=== PATIENT | male | born 1995 | race Caucasian/White ===

== ENCOUNTER 2016-12-22 15:54 | Emergency (ER) | payer OTHER ==
[~2016-12-22] VITALS: Ht 198.1 cm; Wt 109.1 kg
[2016-12-22 16:12] VITALS: BP 124/75; PULSE 70; RESP 16; O2SAT 97
[2016-12-22] MEDS ORDERED: oxyCODONE-Acetamin 5-325 mg Tablet PO ONE (18:15)
[2016-12-22] MEDS ORDERED: Dexamethasone 10 mg/mL Inj IM ONE (18:25)
--- NOTE | 2016-12-22 18:25 | ED.REPORT ---
HPI-Back Pain Under 40 Date of Service December 22, 2016 ED Provider: Tushar Tello DO A 21 year old male with a history of multiple back injuries presents to the ED with lower back pain onset a couple of weeks ago, worsening at 1100 this morning while at work. The pain is described as "sharp" and "shooting," with intermittent radiation down his right leg. The patient denies weakness, numbness , tingling, bowel incontinence, urinary incontinence, or other symptoms. He has been seen at the [facility] and by a chiropractor since onset, with some relief. He has received negative x-rays. 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 Nursing Notes Stated Complaint: POSSIBLE PINCHED NERVE Chief Complaint: Back Pain or Injury Nursing Notes Reviewed: Yes Allergies: Coded Allergies: No Known Allergies (Verified Allergy, Unknown, 06/04/06) Uncoded Allergies: NKDA (Allergy, Unknown, 06/04/06) General Time Seen by MD: 18:15 Chief Complaint Lumbar pain Hx Obtained From: Patient Arrived By: Walk-in Sudden in Onset?: No Onset Occurred: More than a week ago... (2 weeks, worsening this morning) Symptom Duration: Since onset Location: : Spinal lumbar area Quality: Painful Radiation: : Right leg above knee Severity: Current: Moderate Severity: Maximum: Moderate Pertinent Negative: Relieved by nothing Recent Healthcare: Recent doctor visit Similar Sx Previous: Yes Past Medical History Past Medical History Multiple back injuries Past Surgical History None reported Smoking History Unknown if Ever Smoker Social History Other Social History: Good social support Ambulatory Status Independent Review of Systems Review of Systems Note: - Tingling Constitutional: Denies: Fever Respiratory: Denies: Non-productive cough, Shortness of breath GI: Denies: Diarrhea, Vomiting Male: Denies Incontinence Musculoskeletal: Reports: Back pain (Lower), Extremity pain (Right leg) Neurologic: Denies: Bladder dysfunction, Bowel dysfunction, Numbness, Weakness Complete sys rev & neg: except as marked. Physical Exam Initial Vital Signs Vital Signs (First) Date Time Temp Pulse Resp B/P Pulse Ox O2 Delivery O2 Flow Rate FiO2 12/22/16 16:12 36.8 70 16 124/75 97 Room Air Initial VS: Reviewed Head / Eyes: Atraumatic, Normocephalic ENT: Conjunctiva normal, No scleral icterus Neck: Supple, Full range of motion Skin: Warm, Dry, No cyanosis Psychiatric: Mood/affect normal, Behavior normal, Normal thought content General/Constitutional: Awake, Alert Back: No midline vertebral tend, No muscle spasm Muscle Spasm / ROM: Positive: ROM decrease - mild (Due to pain) Positive straight leg raise No signs of cord syndrome No clonus Neurologic: Oriented X3, Speech NL, No motor deficits, No sensory deficits, Reflexes equal bilat, Cerebellar NL Lower Extremity / Pelvis / MS: Atraumatic, Neurologic intact, Vascular intact Re-Eval/Medical Decision Med Decision/Clinical Course No recent direct trauma and he has had x-rays and a chiropractor without appreciable fracture being identified. Advanced imaging felt to be not indicated. No evidence of a cord syndrome or myelopathy. Emergent MRI clearly not indicated. His pain was adequate treated. He was discharged home sensory pain-free completely neurologically intact. Routine opiate warnings and close outpatient follow-up are given. Re-Evaluation/Progress : Time of Eval: 19:07 Patient Status: Condition improved Re-Evaluation/Progress Note: Discussed with patient physical exam findings, diagnosis, and plan for discharge. Follow-up and return to the ER instructions given. Patient agrees with plan for care and all questions were addressed. Counseled Regarding: Diagnosis, Lab results, Need for follow-up, When/why to return to ED Discharge & Departure Impression: Primary Impression: Low back pain Chronicity: acute Back pain laterality: right Sciatica presence: with sciatica Sciatica laterality: sciatica of right side Qualified Code: M54.41 - Lumbago with sciatica, right side Additional Impression: Lumbar radiculopathy Disposition: Home All VS Reviewed: Yes Condition: Improved Patient Instructions: Acute Low Back Pain (ED), Lumbar Radiculopathy (ED) Additional Instructions: Thank you for entrusting us with your care. 1-2 Percocet every six hours as needed for pain. Do not drink alcohol, drive, or consume acetaminophen while taking the Percocet. Finish the Medrol dose pack. Call the referral clinic tomorrow for a follow-up appointment. You may need an MRI or an orthopedic referral. Return to the ER with any new or worsening symptoms. Referrals: [facility] (PCP) [facility] Scribe Attestation Portions of this note were transcribed by Becca Rangel. IDr. Tello, personally performed the history, physical exam, and medical decision-making; I reviewed and confirmed the accuracy of the information in the transcribed note. Signed by: Paula Cody, 12/22/2016, 19:25 copies to: [facility] Tushar Tello DO December 22, 2016 18:25 BECCA RANGEL December 22, 2016 18:29
[2016-12-22 19:20] VITALS: BP 120/66; PULSE 65; RESP 16; O2SAT 99
== END 2016-12-22 19:20 | disposition home or self-care (01) ==
LOC: SED 15:54
DX: M54.41 Lumbago with sciatica, right side (principal); M54.16 Radiculopathy, lumbar region
CPT/HCPCS: 96372; 99284; J1100; J1885